=== PATIENT | female | born 1985 | race Hispanic/Latino ===

== ENCOUNTER 2018-11-26 10:59 | Emergency (ER) | payer BC, SELFPAY ==
--- OUTSIDE RECORDS SUMMARY | 2018-11-26 11:16 | XMS REPORT ---
:1985 [facility] Address [address] [place] [address] Dr. Price [address] [place] [id number] Care Team Providers Name Role Phone Unavailable Unavailable Unavailable Problems This patient has no known problems. Allergies, Adverse Reactions, Alerts This patient has no known allergies or adverse reactions. Medications This patient has no known medications. Results Test Description Test Time Test Comments Text Results Atomic Results Result Comments CT ABDOMEN/PELVIS WITH 2016-11-20 [id number] 13:48:00 [place], [place] [id number] IMAGING REPORTPatient Name: Chapito AVELAR of Service: [id number]: 31 Sex: F Order #: [id number] Room: ERSDOB: 1985 X-Ray Number: [id number] Record Number: [id number] Hospital Number: [id number] Physician: GENNY SANTIAGOOrdering Physician: Ira BEACH CT abdomen and pelvis with IV contrast 11/20/2016 at 1306 hoursHistory: Lower abdominal pain, nauseaComparison: NoneThis CT exam was performed using one or more of the following dosereduction techniques: Automated exposure control, adjustment of the mAand/or kV according to patient size, or use of iterative reconstructiontechnique.Visualized portions of the heart, lung bases, bones, vasculature andsubcutaneous soft tissues show no acute process. 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 Some stool isscattered in the colon. No evidence of bowel obstruction or appendicitis.No significant free air or adenopathy. Minimal nonspecific pelvic freefluid can be seen as part of normal physiologic process.Urinary bladder, uterus and ovaries are otherwise unremarkable.Impression:Moderate right hydronephrosis and hydroureter due to a 4 mm right ureteralorifice calculus.Electronically Signed By: Sebas Richey M.D., 11/20/2016 1:46 [facility] authenticated by LEONA EPPS 2016-11-20 13:46:26
[2018-11-26] MEDS ORDERED: ACETAMINOPHEN 325 MG TABLET ONE (11:22)
[2018-11-26] MEDS ORDERED: IBUPROFEN 400 MG TAB ONE (11:22)
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
[2018-11-26 13:36] LABS: Urine Blood NEGATIVE (NEG); Urine Glucose NEGATIVE (NEG); Urine Protein NEGATIVE (NEG)
== END 2018-11-26 12:10 | disposition home or self-care (01) ==
LOC: ER 10:59
DX: S16.1XXA Strain of muscle, fascia and tendon at neck level, initial encounter (principal); V49.40XA Driver injured in collision with unspecified motor vehicles in traffic accident, initial encounter
CPT/HCPCS: 72040; 81003; 81025; 99284